=== PATIENT | male | born 1965 | race Hispanic/Latino ===

== ENCOUNTER → 2023-06-30 07:06 | Outpatient (REF) | payer OTHER, SELFPAY ==
[2023-06-30 08:12] LABS: % Basophils 0.7 % (0-2); % Eosinophils 1.6 % (0-6); % Immature Granulocytes 1.2 % (0-0.5); % Lymphocytes 30.5 % (20.5-51.1); % Monocytes 5.2 % (1.7-9.3); % Neutrophils 60.8 % (42.2-75.2); Absolute Basophils 0.1 10^3/uL (0-0.2); Absolute Eosinophils 0.1 10^3/uL (0-0.7); Absolute Immature Granulocytes 0.1 10^3/uL (0-0.05); Absolute Lymphocytes 2.3 10^3/uL (1.2-3.4); Absolute Monocytes 0.4 10^3/uL (0.1-0.6); Absolute Neutrophils 4.6 10^3/uL (1.4-6.5); Hematocrit 31.2 % (39.0-52.0); Hemoglobin 10.8 g/dL (13.0-18.0); Mean Corp Hgb Conc. 34.6 g/dL (33.0-37.0); Mean Corpuscular Hgb 30.4 pg (27.0-31.0); Mean Corpuscular Volume 87.9 fL (80.0-94.0); Mean Platelet Volume 10.7 fL (7.4-10.4); Nucleated Red Blood Cells % 0 % (-); Platelet Count 306 10^3/uL (130-400); Red Blood Cell Count 3.55 10^6/uL (4.70-6.10); Red Cell Dist. Width 13.4 % (11.5-14.5); Reticulocyte Count 2.5 % (0.4-2.8); White Blood Cell Count 7.5 10^3/uL (4.8-10.8)
[2023-06-30 08:37] LABS: ALT (SGPT) 17 U/L (0-50); AST (SGOT) 22 U/L (17-59); Albumin 4.4 g/dl (3.5-5.0); Alkaline Phosphatase 118 U/L (38-126); Blood Urea Nitrogen 32 mg/dl (9-20); Calcium 9.1 mg/dl (8.4-10.2); Carbon Dioxide 17 mmol/L (22-30); Chloride 109 mmol/L (98-107); Glucose 193 mg/dl (70-99); HDL Cholesterol 42 mg/dl; Potassium 4.9 mmol/L (3.5-5.1); Sodium 136 mmol/L (135-145); Total Bilirubin 0.6 mg/dl (0.2-1.3); Total Cholesterol 211 mg/dl (50-199); Total Protein 7.1 g/dl (6.3-8.2); eGFR 40.89
[2023-06-30 09:18] LABS: Glycohemoglobin (HgbA1c) 9.9 % (4.0-5.6)
[2023-06-30 09:33] LABS: Triglyceride 403 mg/dl (10-149)
[2023-06-30 10:15] LABS: Microalbumin, Random Urine 3.9 mg/dl (0.6-1.7); Microalbumin/creatinine Ratio 21.9 mg/g
[2023-06-30 14:14] LABS: LDL Cholesterol, Direct 98 mg/dl
== END ==
LOC: CLINIC 07:06
PROVIDERS: ATTENDING PHYSICIAN Internal Medicine
DX: E11.9 Type 2 diabetes mellitus without complications (principal)
CPT/HCPCS: 36415; 80053; 80061; 82043; 82570; 83036; 83721; 85025; 85045

== ENCOUNTER → 2024-03-12 07:09 | Outpatient (REF) | payer OTHER, SELFPAY ==
[2024-03-12 08:20] LABS: % Eosinophils 2.9 % (0-6); % Immature Granulocytes 1.9 % (0-0.5); % Lymphocytes 25.9 % (20.5-51.1); % Monocytes 7.4 % (1.7-9.3); % Neutrophils 60.9 % (42.2-75.2); Absolute Basophils 0.1 10^3/uL (0-0.2); Absolute Eosinophils 0.2 10^3/uL (0-0.7); Absolute Immature Granulocytes 0.1 10^3/uL (0-0.05); Absolute Lymphocytes 1.8 10^3/uL (1.2-3.4); Absolute Monocytes 0.5 10^3/uL (0.1-0.6); Absolute Neutrophils 4.3 10^3/uL (1.4-6.5); Hematocrit 32.6 % (39.0-52.0); Hemoglobin 10.9 g/dL (13.0-18.0); Mean Corp Hgb Conc. 33.4 g/dL (33.0-37.0); Mean Corpuscular Hgb 29.1 pg (27.0-31.0); Mean Corpuscular Volume 87.2 fL (80.0-94.0); Nucleated Red Blood Cells % 0 % (-); Platelet Count 298 10^3/uL (130-400); Red Blood Cell Count 3.74 10^6/uL (4.70-6.10); Red Cell Dist. Width 13.2 % (11.5-14.5); Reticulocyte Count 2.8 % (0.4-2.8)
[2024-03-12 09:02] LABS: ALT (SGPT) 21 U/L (0-50); AST (SGOT) 23 U/L (17-59); Albumin 4.6 g/dl (3.5-5.0); Alkaline Phosphatase 142 U/L (38-126); Blood Urea Nitrogen 28 mg/dl (9-20); Calcium 9.4 mg/dl (8.4-10.2); Carbon Dioxide 19 mmol/L (22-30); Chloride 107 mmol/L (98-107); Glucose 152 mg/dl (70-99); HDL Cholesterol 45 mg/dl; LDL Cholesterol, Calculated 117 mg/dl; Potassium 5.1 mmol/L (3.5-5.1); Sodium 141 mmol/L (135-145); Total Bilirubin 0.2 mg/dl (0.2-1.3); Total Cholesterol 226 mg/dl (50-199); Total Protein 7.3 g/dl (6.3-8.2); Triglyceride 323 mg/dl (10-149); Very Low Density Lipoprotein 64 mg/dl (0-30)
[2024-03-12 09:21] LABS: Glycohemoglobin (HgbA1c) 6.2 % (4.0-5.6)
[2024-03-12 09:24] LABS: PSA, Total - Screen 0.71 ng/ml (0.0-4.0)
== END ==
LOC: REG 07:09
PROVIDERS: ATTENDING PHYSICIAN Internal Medicine
DX: N18.32 Chronic kidney disease, stage 3b (principal)
CPT/HCPCS: 36415; 80053; 80061; 83036; 85025; 85045; G0103

== ENCOUNTER → 2024-03-23 07:56 | Outpatient (REF) | payer OTHER, SELFPAY ==
[2024-03-25 18:09] LABS: FIT-Fecal Occult Blood Interp Negative
== END ==
LOC: CLINIC 07:56
PROVIDERS: ATTENDING PHYSICIAN Internal Medicine
DX: N18.32 Chronic kidney disease, stage 3b (principal)
CPT/HCPCS: 83520

== ENCOUNTER → 2024-08-17 07:20 | Outpatient (REF) | payer OTHER, SELFPAY ==
[2024-08-17 09:13] LABS: ALT (SGPT) 15 U/L (0-50); AST (SGOT) 20 U/L (17-59); Albumin 4.1 g/dl (3.5-5.0); Alkaline Phosphatase 127 U/L (38-126); Blood Urea Nitrogen 38 mg/dl (9-20); Calcium 9.5 mg/dl (8.4-10.2); Carbon Dioxide 21 mmol/L (22-30); Chloride 111 mmol/L (98-107); Glucose 181 mg/dl (70-99); HDL Cholesterol 34 mg/dl; LDL Cholesterol, Calculated 114 mg/dl; Potassium 5.5 mmol/L (3.5-5.1); Sodium 142 mmol/L (135-145); Total Bilirubin 0.5 mg/dl (0.2-1.3); Total Cholesterol 204 mg/dl (50-199); Total Protein 6.6 g/dl (6.3-8.2); Triglyceride 283 mg/dl (10-149); Very Low Density Lipoprotein 56 mg/dl (0-30); eGFR 53.96
[2024-08-17 12:29] LABS: Glycohemoglobin (HgbA1c) 10.1 % (4.0-5.6)
== END ==
LOC: REG 07:20
DX: E11.9 Type 2 diabetes mellitus without complications (principal)
CPT/HCPCS: 36415; 80053; 80061; 83036

== ENCOUNTER → 2024-12-10 07:43 | Outpatient (REF) | payer OTHER, SELFPAY ==
[2024-12-10 09:47] LABS: HDL Cholesterol 37 mg/dl; LDL Cholesterol, Calculated 62 mg/dl; Very Low Density Lipoprotein 79 mg/dl (0-30)
[2024-12-10 10:16] LABS: Glycohemoglobin (HgbA1c) 9.7 % (4.0-5.6)
== END ==
LOC: CLINIC 07:43
PROVIDERS: ATTENDING PHYSICIAN Internal Medicine
DX: E11.9 Type 2 diabetes mellitus without complications (principal)
CPT/HCPCS: 36415; 80061; 83036